=== PATIENT | female | born 1980 | race Caucasian/White ===

== ENCOUNTER → 2022-09-06 | Outpatient (CLI) | payer MEDICAID, OTHER ==
[~2022-09-06] MED LIST: PROHANCE 279.3MG/ML 15ML VIAL As Ordered ONE
== END ==
LOC: M RAD 12:41
DX: G35 Multiple sclerosis (principal); M21.371 Foot drop, right foot; M54.16 Radiculopathy, lumbar region
CPT/HCPCS: 70553; 72156; 72157; 72158; A9576